=== PATIENT | male | born 1950 | race Caucasian/White ===

== ENCOUNTER 2023-02-25 04:05 | Day surgery (SDC) | payer OTHER ==
[2023-02-21 06:22] VITALS: BMI 28.7
[2023-02-25] MEDS ORDERED: VANCOMYCIN/WATER FOR INJ (PEG) 1,000 MG/200 ML BAG IVPB ONE ×2 (12:45→12:48)
[2023-02-25] MEDS ORDERED: GENTAMICIN 80 MG PREMIXED IVPB 80 MG/100 ML BAG IVPB ONE (13:15)
[2023-02-25] MEDS ORDERED: VANCOMYCIN 1,000 MG VIAL (RESTRICTED TO ID ONLY) IVPB ONE (14:04)
[2023-02-25] MEDS ORDERED: LIDOCAINE HCL 1%, 10 MG/ML (10ML VIAL) MDV ONE (14:40)
[2023-02-25] MEDS ORDERED: GENTAMICIN SO4 80 MG/2 ML VIAL ONE (15:20)
[2023-02-25] MEDS ORDERED: MIDAZOLAM HCL 2 MG/2 ML SINGLE DOSE VIAL ONE (15:27)
[2023-02-25] MEDS ORDERED: ceFAZolin SODIUM 1 GM VIAL IVPB ONE (16:02)
[2023-02-25] MEDS ORDERED: LIDOCAINE HCL 1%, 10 MG/ML (20ML VIAL) INF ONE ×2 (17:03)
[2023-02-25] MEDS ORDERED: BUPIVACAINE HCL/PF 0.5% (5 MG/ML) 30 ML VIAL IJ ONE ×2 (17:04)
[2023-02-25] MEDS ORDERED: oxyCODONE HCL 5 MG TABLET PO PRN ×2 (17:41)
[2023-02-25] MEDS ORDERED: ONDANSETRON 4 MG/2 ML VIAL IVPUSH PRN (17:41)
[2023-02-25] MEDS ORDERED: ACETAMINOPHEN 1000 MG/100 ML BAG IVPB ONE (17:41)
[2023-02-25] MEDS ORDERED: PROMETHAZINE HCL 25 MG/1 ML VIAL IVPB PRN (17:41)
[2023-02-25] MEDS ORDERED: LACTATED RINGERS SOLUTION 1,000 ML IV SCH (17:45)
[2023-02-25] MEDS ORDERED: ACETAMINOPHEN INJECTION 100 ML IVPB ONE (19:03)
[2023-02-25 20:40] VITALS: BP 132/76; PULSE 91; RESP 18; TEMP 98.1
== END 2023-02-25 20:50 | disposition home or self-care (01) ==
LOC: JASU-SURG 04:05 → JASUSAT 04:05 → J8W 20:01 → JASUSAT 20:50
PROVIDERS: ATTEND Urology
PROC: 0VUS0JZ Supplement Penis with Synthetic Substitute, Open Approach (ICD-10-PCS; principal; 2023-02-25 14:45)
DX: N52.9 Male erectile dysfunction, unspecified (principal)
CPT/HCPCS: 54405; C1813; 94760